=== PATIENT | male | born 1950 | race Caucasian/White ===

== ENCOUNTER 2020-09-28 09:37 | Emergency (ER) | payer MEDICARE, BC ==
[~2020-09-28] VITALS: Ht 193 cm; Wt 143.2 kg
[2020-09-28 09:43] VITALS: BP 133/75; Ht 193 cm; Wt 143.2 kg
== END 2020-09-28 10:03 | disposition home or self-care (01) ==
LOC: D.ER 09:37
DX: R04.0 Epistaxis (principal); E11.9 Type 2 diabetes mellitus without complications; I10 Essential (primary) hypertension; J45.909 Unspecified asthma, uncomplicated